=== PATIENT | female | born 1980 | race Two or more races ===

== ENCOUNTER 2019-01-31 06:27 | Inpatient (IN) | payer MEDICAID ==
[~2019-01-31] VITALS: Ht 162.6 cm; Wt 78.9 kg
[2019-01-31] MEDS ORDERED: CITRIC ACID/SODIUM CITRATE SOLN 30ML UDC PO NR (07:45)
[2019-01-31] MEDS ORDERED: DEXT 5%/LR + PITOCIN 20UNITS/L 1,000 ML IV SCH (08:00)
[2019-01-31] MEDS ORDERED: LACTATED RINGERS 1,000 ML IV SCH (08:00)
[2019-01-31] MEDS ORDERED: MORPHINE SULFATE/PF 1MG/ML 10ML AMP ONE (08:24)
[2019-01-31] MEDS ORDERED: SODIUM CHLORIDE 0.9% 10ML VIAL ONE ×2 (08:27→08:40)
[2019-01-31] MEDS ORDERED: EPHEDRINE SULFATE 50MG/ML VIAL ONE (08:27)
[2019-01-31] MEDS ORDERED: PHENYLEPHRINE HCL 10 MG/ML 1ML (IV VIAL) IV ONE (08:27)
[2019-01-31] MEDS ORDERED: GLYCOPYRROLATE 0.2 MG/ML 2ML VIAL ONE (08:35)
[2019-01-31] MEDS ORDERED: METOCLOPRAMIDE HCL 10MG/2ML VIAL ONE (08:36)
[2019-01-31] MEDS ORDERED: ONDANSETRON HCL 4MG/2ML INJ ONE (08:36)
[2019-01-31] MEDS ORDERED: CEFAZOLIN SODIUM 1000MG/VIAL ONE (08:40)
[2019-01-31] MEDS ORDERED: OXYTOCIN 10 UNITS/ML 1ML ONE ×2 (08:44→11:06)
[2019-01-31 09:04] LABS: BASOPHILS % 0.3 % (0.0-2.0); EOSINOPHILS % 2.1 % (0.0-5.0); HEMATOCRIT. 31.9 % (36.0-48.0); HEMOGLOBIN. 10.8 g/dL (12.0-16.0); MEAN CORPUSCULAR VOLUME 94.1 fL (81.0-99.0); MEAN PLATELET VOLUME 8.7 fl (7.4-10.4); MONOCYTES % 7.8 % (2.0-8.0); NEUTROPHILS % 76.8 % (40.0-76.0); PLATELET 223 x1000/uL (130-400); RED BLOOD CELL COUNT 3.39 mill/uL (4.2-5.4); RED CELL DISTRIBUTION WIDTH 15.9 % (11.6-14.6)
[2019-01-31 09:06] LABS: CLARITY URINE CLEAR (CLEAR); COLOR URINE YELLOW (YELLOW); KETONES URINE NEGATIVE (NEGATIVE); LEUKOCYTE ESTERASE URINE NEGATIVE (NEGATIVE); NITRITE URINE NEGATIVE (NEGATIVE); OCCULT BLOOD URINE TRACE (NEGATIVE); PROTEIN URINE NEGATIVE (NEGATIVE); SPECIFIC GRAVITY URINE 1.014 (1.005-1.030); UROBILINOGEN URINE 0.2 E.U./dL (0.2-1.0)
[2019-01-31 09:13] LABS: INR 0.9; PARTIAL THROMBOPLASTIN TIME 24.5 sec (23.4-31.0)
[2019-01-31 09:33] LABS: *AMPHETAMINES SCREEN URINE NEGATIVE (NEGATIVE); *BARBITURATES SCREEN URINE NEGATIVE (NEGATIVE); *BENZODIAZEPINES SCREEN URINE NEGATIVE (NEGATIVE); *COCAINE SCREEN URINE NEGATIVE (NEGATIVE)
[2019-01-31 09:34] LABS: CANNABINOID URINE SCREEN NEGATIVE (NEGATIVE); METHADONE URINE SCREEN NEGATIVE (NEGATIVE); OPIATES URINE SCREEN NEGATIVE (NEGATIVE); PHENCYCLIDINE URINE SCREEN NEGATIVE (NEGATIVE)
[2019-01-31 10:15] LABS: PROTHROMBIN TIME < 9.0 sec (9.6-11.0)
[2019-01-31 10:22] LABS: HEPATITIS B SURFACE ANTIGEN NEGATIVE
[2019-01-31] MEDS ORDERED: KETOROLAC 60MG/2ML VIAL IM ONE (11:12)
[2019-01-31] MEDS ORDERED: RHO(D) IMMUNE GLOBULIN 300 MCG/SYR IM PRN (11:45)
[2019-01-31] MEDS ORDERED: HYDROMORPHONE HCL/PF 2MG/ML CPJ IM PRN (11:45)
[2019-01-31] MEDS ORDERED: IBUPROFEN 400MG TABLET PO PRN (11:45)
[2019-01-31 13:00] VITALS: BP 105/59
[2019-01-31] MEDS ORDERED: BISACODYL 10MG SUPP PR PRN (13:00)
[2019-01-31 13:30] VITALS: BP 111/62
[2019-01-31 15:00] VITALS: BP 100/44
[2019-01-31] MEDS: DEXT 5%/LR + PITOCIN 20UNITS/L 1,000 ML IV SCH (15:44)
[2019-01-31 22:00] VITALS: BP 100/54
[2019-02-01 00:20] VITALS: BP 102/59
[2019-02-01] MEDS: DEXT 5%/LR + PITOCIN 20UNITS/L 1,000 ML IV SCH (00:26)
[2019-02-01 05:35] VITALS: BP 99/54
[2019-02-01 06:05] LABS: BASOPHILS % 0.2 % (0.0-2.0); EOSINOPHILS % 0.4 % (0.0-5.0); HEMATOCRIT. 25.7 % (36.0-48.0); HEMOGLOBIN. 8.7 g/dL (12.0-16.0); LYMPHOCYTES % 9.8 % (20.0-50.0); MEAN CORPUSCULAR HEMOGLOBIN 32.3 pg (28.0-32.0); MEAN PLATELET VOLUME 8.7 fl (7.4-10.4); MONOCYTES % 7.1 % (2.0-8.0); NEUTROPHILS % 82.5 % (40.0-76.0); PLATELET 180 x1000/uL (130-400); RED CELL DISTRIBUTION WIDTH 16.1 % (11.6-14.6)
[2019-02-01 08:00] VITALS: BP 98/46
[2019-02-01] MEDS ORDERED: LACTATED RINGERS 1,000 ML IV SCH (08:30)
[2019-02-01] MEDS: IBUPROFEN 800MG TABLET PO PRN ×2 (14:29→23:32)
[2019-02-01 15:45] VITALS: BP 88/45
[2019-02-01 19:20] VITALS: BP 95/50
[2019-02-02 05:00] VITALS: BP 95/55
[2019-02-02 07:30] VITALS: BP 104/57
[2019-02-02] MEDS: IBUPROFEN 800MG TABLET PO PRN ×2 (08:51→14:24)
[2019-02-02] MEDS ORDERED: HYDROCODONE/ACETAMINOPHEN 5/325MG TABLET PO PRN (09:00)
[2019-02-02 14:40] VITALS: BP 110/62
[2019-02-03 04:00] VITALS: BP 107/56
[2019-02-03] MEDS: IBUPROFEN 800MG TABLET PO PRN (04:13)
[2019-02-03 07:45] VITALS: BP 109/59
== END 2019-02-03 11:55 | disposition home or self-care (01) | DRG 540 ==
LOC: 8 EST LDRP 06:27 → 8EST 12:52
PROVIDERS: ADMIT Obstetrics & Gynecology; ATTEND Obstetrics & Gynecology
PROC: 10D00Z1 Extraction of Products of Conception, Low, Open Approach (ICD-10-PCS; principal; 2019-01-31)
DX: O32.2XX0 Maternal care for transverse and oblique lie, not applicable or unspecified (principal); O32.8XX0 Maternal care for other malpresentation of fetus, not applicable or unspecified; Z37.0 Single live birth; Z3A.39 39 weeks gestation of pregnancy
CPT/HCPCS: 36415; 76815; 80305; 81003; 86592; 86703; 86762; 86850; 86900; 87340; 88307; J0690; J1885; J2274; J2370; J2405; J2590; J2765; J3490; J7120